=== PATIENT | female | born 1940 | race Caucasian/White ===

== ENCOUNTER 2021-10-27 00:08 | Inpatient (IN) | payer MEDICARE, OTHER ==
[~2021-10-27] VITALS: Ht 172.7 cm; Wt 82.1 kg
--- NOTE | 2021-10-27 00:20 | NUR ---
ELIZABETH Henriquez FROM [facility] C/O ABD PAIN +NAUSEA X1 DAY. PATIENT ALERT AND ORIENTED X2. BROUGHT IN BY STRETCHER WITH DYSPNEA. PATIENT PLACED ON NON REBREATHER MASK @8L SATTING AT 98%
--- NOTE | 2021-10-27 00:40 | NUR ---
LOCOMOTIVE ELECTRICIAN @ BEDSIDE
[2021-10-27] MEDS ORDERED: IV NS 0.9% 500 ML BAG IV ONE (01:00)
--- NOTE | 2021-10-27 01:24 | NUR ---
MRSA SWAB COLLECTED AND SENT TO LAB. PATIENT'S BELONGINGS LIST DONE.
[2021-10-27 01:26] LABS: BASOPHILS % (AUTO) 0.3 % (0.0-2.0); EOSINOPHILS % (AUTO) 0.2 % (0.0-6.0); HEMATOCRIT 32 % (33-45); HEMOGLOBIN 9.8 g/dL (11.5-14.8); LYMPHOCYTES # (AUTO) 1.1 K/uL (0.8-4.8); LYMPHOCYTES % (AUTO) 8.8 % (20.0-44.0); MEAN CORPUSCULAR HGB CONC 31 g/dl (31.0-36.0); MEAN CORPUSCULAR VOLUME 96 fL (82-100); MONOCYTES # (AUTO) 0.5 K/uL (0.1-1.30); MONOCYTES % (AUTO) 3.7 % (2.0-12.0); PLATELET COUNT (AUTO) 407 K/uL (150-450); WHITE BLOOD COUNT (AUTO) 12.6 K/uL (4.3-11.0)
--- NOTE | 2021-10-27 01:28 | NUR ---
PATIENT GOING TO CT.
[2021-10-27 01:39] LABS: CALCIUM, SERUM 8.2 mg/dL (8.5-10.1); CREATININE 0.7 mg/dL (0.6-1.3); POTASSIUM 3.5 mmol/L (3.5-5.1)
[2021-10-27] MEDS ORDERED: ONDANSETRON HCL/PF 4 MG/2 ML VIAL ONE (02:16)
[2021-10-27] MEDS ORDERED: LORAZEPAM 0.5 MG TABLET ONE (02:17)
[2021-10-27] MEDS ORDERED: ASPIRIN 325 MG TABLET ONE (02:17)
--- NOTE | 2021-10-27 02:17 | NUR ---
CHANGED PATIENTS BEDDINGS AND DIAPER PATIENT COMFORTABLE AND ON THE MONITOR
[2021-10-27] MEDS ORDERED: ONDANSETRON HCL/PF 4 MG/2 ML VIAL IV ONE (02:30)
[2021-10-27] MEDS ORDERED: ASPIRIN 325 MG TABLET PO ONE (02:30)
[2021-10-27] MEDS ORDERED: LORAZEPAM 0.5 MG TABLET PO ONE (02:30)
[2021-10-27 02:31] LABS: BILIRUBIN,URINE SMALL (NEGATIVE); COLOR,URINE YELLOW (YELLOW); LEUKOCYTE ESTERASE ,URINE TRACE (NEGATIVE); NITRITE, URINE POSITIVE (NEGATIVE); PROTEIN,URINE 30 mg/dl (NEGATIVE); UGLUCOSE NEGATIVE (NEGATIVE); UROBILINOGEN,URINE 0.2 EU/dL (0.2)
[2021-10-27 02:35] LABS: ALBUMIN 2.3 g/dL (3.4-5.0); BILIRUBIN,DIRECT 0.3 mg/dL (0.0-0.2); BILIRUBIN,TOTAL 0.4 mg/dL (0.2-1.0); TOTAL PROTEIN, SERUM 6.2 g/dL (6.4-8.2)
[2021-10-27 02:44] LABS: BACTERIA,URINE Moderate /HPF (None Seen); SQUAMOUS EPITHELIAL CELL,UR Few /HPF (None Seen)
[2021-10-27] MEDS ORDERED: LEVOFLOXACIN 750 MG /D5W 150ML PIGGYBACK IV ONE (03:00)
[2021-10-27] MEDS ORDERED: LEVOFLOXACIN 750 MG /D5W 150ML 150 ML IV ONE (03:08)
--- NOTE | 2021-10-27 03:30 | NUR ---
patient resting comfortably no complaints at this time.
[2021-10-27] MEDS ORDERED: ONDANSETRON HCL/PF 4 MG/2 ML VIAL IVP PRN (04:30)
[2021-10-27] MEDS ORDERED: Z GUARD REMEDY 2 OZ OINT TP PRN (04:30)
[2021-10-27] MEDS ORDERED: HYDROCODONE/APAP 5/325MG TABLET PO PRN (04:30)
[2021-10-27] MEDS ORDERED: MORPHINE SULFATE INJ 2 MG/ML DISP.SYRIN IV PRN (04:30)
[2021-10-27] MEDS ORDERED: NITROGLYCERIN 0.4 MG/TAB BOTTLE SL PRN (04:30)
[2021-10-27] MEDS ORDERED: MAGNESIUM HYDROXIDE 30 ML UDC PO PRN (04:30)
[2021-10-27] MEDS ORDERED: MAG HYDROX/AL HYDROX/SIMETH 30 ML UDC PO PRN (04:30)
[2021-10-27] MEDS ORDERED: FLAGYL/NS RTU 500 MG/100 ML PIGGYBACK IV ONE (04:30)
[2021-10-27] MEDS ORDERED: CIPROFLOXACIN IV RTU 400 MG in PREMIX 1 EA IV SCH (04:30)
[2021-10-27] MEDS ORDERED: ZOLPIDEM TARTRATE 5 MG TABLET PO PRN (04:30)
[2021-10-27] MEDS ORDERED: METRONIDAZOLE 500MG/ NS 100ML 100 ML IV ONE (04:40)
[2021-10-27] MEDS ORDERED: CIPROFLOXACIN IV RTU 200 ML IV ONE (04:40)
--- NOTE | 2021-10-27 07:20 | NUR ---
ASSESSED PT ON BED AWAKE, AAOX4, ON NON RB AT 15 LPM. V/S STABLE, KEPT RESTED AND COMFORTABLE. WILL CONTINUE TO MONITOR.
--- NOTE | 2021-10-27 07:30 | NUR ---
SWITCHED TO SIMPLE MASK ON 10LPM. SATS AT 100%
[2021-10-27] MEDS ORDERED: PANTOPRAZOLE 40 MG TABLET.DR PO ONE (07:46)
[2021-10-27] MEDS: PANTOPRAZOLE 40 MG TABLET.DR PO SCH (07:47)
[2021-10-27] MEDS ORDERED: BENA5TAB5 PO (08:11)
[2021-10-27] MEDS ORDERED: MELA3TAB41 PO (08:11)
[2021-10-27] MEDS ORDERED: MAGN400O6 PO (08:11)
[2021-10-27] MEDS ORDERED: INSU100V11 SQ (08:11)
[2021-10-27] MEDS ORDERED: ASCO-352 PO (08:11)
[2021-10-27] MEDS ORDERED: CARV3.122 PO (08:11)
[2021-10-27] MEDS ORDERED: OMEP20CA15 PO (08:11)
[2021-10-27] MEDS ORDERED: SIME80TA15 PO (08:11)
[2021-10-27] MEDS ORDERED: ACET-868 PO ×2 (08:11)
[2021-10-27] MEDS ORDERED: FURO-144 PO (08:11)
[2021-10-27] MEDS ORDERED: CHOL100062 PO (08:11)
[2021-10-27] MEDS ORDERED: BISA10SU11 RC (08:11)
[2021-10-27] MEDS ORDERED: ATOR40TA PO (08:11)
[2021-10-27] MEDS ORDERED: NA P133E RC (08:11)
[2021-10-27] MEDS ORDERED: ASPI-1169 PO (08:11)
[2021-10-27] MEDS ORDERED: POLY17PO4 PO (08:11)
[2021-10-27] MEDS ORDERED: MULT-447 PO (08:11)
[2021-10-27] MEDS ORDERED: ALBU8.5H8 IH (08:11)
[2021-10-27] MEDS ORDERED: ESCI5TAB PO (08:11)
[2021-10-27] MEDS ORDERED: FLUT16SP (08:11)
[2021-10-27] MEDS ORDERED: ONDA4TAB5 PO (08:11)
--- NOTE | 2021-10-27 08:49 | NUR ---
Lj moon in [facility] - 10/27/21 at 0850 by DOMINGO SPOKED TO TILA
--- NOTE | 2021-10-27 08:50 | NUR ---
SPOKE TO PT BROTHER RUTH ANN WHO IS THE POA.
[2021-10-27] MEDS ORDERED: ASPIRIN EC 81 MG TABLET.DR PO SCH (09:00)
[2021-10-27] MEDS ORDERED: FUROSEMIDE 40 MG/4 ML VIAL IV SCH (09:00)
[2021-10-27] MEDS ORDERED: ENOXAPARIN SODIUM 40 MG/0.4 ML DISP.SYRIN SQ ONE (09:03)
[2021-10-27] MEDS ORDERED: FUROSEMIDE 40 MG/4 ML VIAL ONE (09:04)
[2021-10-27] MEDS ORDERED: ASPIRIN 81 MG TAB.CHEW ONE (09:04)
[2021-10-27] MEDS: ENOXAPARIN SODIUM 40 MG/0.4 ML DISP.SYRIN SQ SCH (09:16)
--- NOTE | 2021-10-27 09:35 | NUR ---
BED 116-1
--- NOTE | 2021-10-27 09:44 | NUR ---
REPORT GIVEN TO ANITHA SHELTON FOR POWER.
[2021-10-27] MEDS ORDERED: OMEPRAZOLE 20 MG CAPSULE.DR PO SCH (10:30)
[2021-10-27] MEDS ORDERED: ALBUTEROL SULFATE INH 18 GM HFA.AER.AD IH PRN (10:30)
--- NOTE | 2021-10-27 10:53 | NUR ---
BREWING DIRECTOR NOTES RECEIVED PT AWAKE/ALERT X 4 ON 8L SIMPLE MASK WITH NO S/SX OF ACUTE RESPIRATORY DISTRESS. PT HAS A LEFT WRIST 22G SALINE LOCK, FLUSHED, PATENT AND IN TACT. PT SKIN IS IN TACT WITH SACRAL REDNESS, AND REDNESS UNDER BREAST TISSUE. PT VITAL SIGNS ARE STABLE: T-98.6, HR-76, RR-22, 02 SATURATION- 100%, BP-134/66, WITH NO COMPLAINTS OF PAIN AT THIS TIME. PT PLACED ON A TELE MONITOR, PT ORIENTED TO ROOM, SAFETY MEASURES IN PLACE WITH BED IN LOWEST LOCKED POSITION, SIDE RAILS UP X2, BED ALARM ON AND CALL LIGHT WITHIN REACH.
[2021-10-27 10:57] VITALS: BP 134/66
[2021-10-27] MEDS ORDERED: POTASSIUM CHLORIDE 20 MEQ TAB.PRT.SR PO SCH (11:00)
[2021-10-27] MEDS: ASPIRIN 81 MG TAB.CHEW PO SCH (11:22)
[2021-10-27] MEDS: BENAZEPRIL HCL 5 MG TABLET PO SCH (11:23)
[2021-10-27] MEDS: FUROSEMIDE 40 MG/4 ML VIAL IV SCH ×3 (11:23→18:17)
[2021-10-27] MEDS: ONDANSETRON 4 MG TAB.RAPDIS PO PRN ×2 (11:26→15:51)
[2021-10-27] MEDS: ACETAMINOPHEN 325 MG TABLET PO PRN ×2 (11:27→15:51)
[2021-10-27] MEDS: FLUTICASONE PROPIONATE 16 GM BOTTLE NS SCH (11:28)
[2021-10-27] MEDS: CEFEPIME 2 GM in IV D5W 100 ML IV SCH ×2 (11:43→20:41)
[2021-10-27 12:00] VITALS: BP 134/66
[2021-10-27] MEDS: POTASSIUM CHLORIDE 20 MEQ POWDER PACKET PO SCH ×2 (14:17→14:18)
--- NOTE | 2021-10-27 15:30 | NUR ---
LABORER HOISTING NOTES ECHO DONE. PT EF 20% AND PLEURAL EFFUSIONS EVIDENT. NIKO LA NOTIFIED.
[2021-10-27 16:00] VITALS: BP 119/59
--- NOTE | 2021-10-27 16:23 | NUR ---
RETAIL RESET MERCHANDISER NOTES 16 F MARTINS CATHETER INSERTED, DRAINING PALE YELLOW URINE.
--- NOTE | 2021-10-27 16:39 | NUR ---
PRELIMINARY ECHO SHOWED EF 20-25%~. ADVISED RN AND DR. BOOTH OF INITIAL RESULTS.
[2021-10-27] MEDS: LORAZEPAM INJ 2 MG/ML VIAL IV PRN (18:15)
--- NOTE | 2021-10-27 18:39 | NUR ---
LOAN WORKOUT OFFICER CLOSING NOTES PT RESTING WITH HOB ELEVATED ON SIMPLE FACE MASK @8LPM, WITH SOME SOB NOTED. PT HAS A L WRIST 20G SL. GAVE PRN ATIVAN @1815 FOR INCREASED ANXIETY. PT HAS A MARTINS WITH 1200ML OUTPUT ON SHIFT AND 1 BM. NO INSULIN COVERAGE GIVEN THROUGHOUT SHIFT. PT IS ABLE TO MAKE NEEDS KNOWN. PT KEPT CLEAN AND DRY THROUGHOUT SHIFT. SAFETY MEASURES IN PLACE WITH BED IN LOW LOCKED POSITION, SIDE RAILS UP X3, AND CALL LIGHT WITHIN REACH.
[2021-10-27 20:00] VITALS: BP 122/47
--- NOTE | 2021-10-27 20:07 | NUR ---
RN NOTE PATIENT ALERT AND ORIENTED X4. ON 8L SIMPLE MASK WITH NO SIGNS OF SOB. IV ACCESS ON LEFT WRIST 22G SALINE LOCK, FLUSHED, PATENT AND INTACT. DENIES ANY PAIN OR DISCOMFORT. SAFETY MEASURES IN PLACE WITH BED IN LOWEST LOCKED POSITION, SIDE RAILS UP X2, BED ALARM ON AND CALL LIGHT WITHIN REACH. ALL NEEDS ANTICIPATED.
[2021-10-28] VITALS: BP 119/58
[2021-10-28] MEDS: ACETAMINOPHEN 325 MG TABLET PO PRN ×4 (00:29→23:33)
[2021-10-28] MEDS: ONDANSETRON 4 MG TAB.RAPDIS PO PRN ×4 (00:29→23:33)
[2021-10-28] MEDS: LORAZEPAM INJ 2 MG/ML VIAL IV PRN ×2 (03:55→16:10)
[2021-10-28 04:00] VITALS: BP 138/63
--- NOTE | 2021-10-28 07:28 | NUR ---
RN NOTE PATIENT ALERT AND ORIENTED X4. ON 8L SIMPLE MASK, NO RESPIRATORY DISTRESS NOTED. IV ACCESS ON LEFT WRIST 22G SALINE LOCK, FLUSHED, PATENT AND INTACT. DENIES ANY PAIN OR DISCOMFORT. KEPT CLEAN AND DRY. SAFETY MEASURES IN PLACE WITH BED IN LOWEST LOCKED POSITION, SIDE RAILS UP X2, BED ALARM ON AND CALL LIGHT WITHIN REACH. ENDORSED TO AM SHIFT.
--- NOTE | 2021-10-28 07:38 | NUR ---
RN OPENING NOTES; PT IN BED IN SUPINE POS. PT A/OX4, PT HAS NO C/O PAIN AT THIS TIME. NO SOB AND DISTRESS NOTED. ALL SAFETY MEASURES RENDERED, BED LOCKED, IN LOWEST POS. SIDE RAILS UP X3, WITH CALL LIGHT WITHIN REACH. WILL CONTINUE TO MONITOR.
[2021-10-28 08:00] VITALS: BP 114/61
[2021-10-28] MEDS: CEFEPIME 2 GM in IV D5W 100 ML IV SCH ×2 (08:35→20:18)
[2021-10-28] MEDS: ASPIRIN 81 MG TAB.CHEW PO SCH (08:40)
[2021-10-28] MEDS: ESCITALOPRAM OXALATE (10 MG) 10 MG TABLET PO SCH (08:41)
[2021-10-28] MEDS: PANTOPRAZOLE 40 MG TABLET.DR PO SCH (08:41)
[2021-10-28] MEDS: CARVEDILOL 3.125 MG TABLET PO SCH ×2 (08:41→16:09)
[2021-10-28] MEDS: BENAZEPRIL HCL 5 MG TABLET PO SCH (08:41)
[2021-10-28] MEDS: ENOXAPARIN SODIUM 40 MG/0.4 ML DISP.SYRIN SQ SCH (08:42)
[2021-10-28] MEDS: FLUTICASONE PROPIONATE 16 GM BOTTLE NS SCH (08:45)
[2021-10-28 09:08] LABS: BASOPHILS % (AUTO) 0.6 % (0.0-2.0); EOSINOPHILS % (AUTO) 0.9 % (0.0-6.0); HEMATOCRIT 29 % (33-45); HEMOGLOBIN 9.3 g/dL (11.5-14.8); LYMPHOCYTES # (AUTO) 1.5 K/uL (0.8-4.8); LYMPHOCYTES % (AUTO) 21.7 % (20.0-44.0); MEAN CORPUSCULAR HGB CONC 32 g/dl (31.0-36.0); MEAN CORPUSCULAR VOLUME 94 fL (82-100); MONOCYTES # (AUTO) 0.5 K/uL (0.1-1.30); MONOCYTES % (AUTO) 7.1 % (2.0-12.0); NEUTROPHILS # (AUTO) 4.9 K/uL (1.8-8.9); NEUTROPHILS % (AUTO) 69.7 % (43.0-81.0); PLATELET COUNT (AUTO) 304 K/uL (150-450); RED BLOOD CELL COUNT(AUTO) 3.12 MIL/uL (4.0-5.2)
[2021-10-28 09:35] LABS: ALBUMIN 2.4 g/dL (3.4-5.0); BILIRUBIN,TOTAL 0.4 mg/dL (0.2-1.0); CALCIUM, SERUM 8.4 mg/dL (8.5-10.1); CREATININE 0.8 mg/dL (0.6-1.3); MAGNESIUM 1.4 mg/dL (1.8-2.4); PHOSPHORUS 3.5 mg/dL (2.5-4.9); POTASSIUM 3.8 mmol/L (3.5-5.1); TOTAL PROTEIN, SERUM 6.2 g/dL (6.4-8.2)
[2021-10-28 10:04] LABS: ABG BASE EXCESS 7.9 mmol/L; ABG OXYGEN SATURATION 99.1 % (92.0-98.5); ABG PCO2 41.5 mmHg (35.0-45.0); ABG PH 7.502 (7.350-7.450); ABG PO2 159.1 mmHg (75.0-100.0); AaDO2 49.4 mmHg; O2Hb 99.1 % (94.0-97.0); SITE, ABG Right Radial; VENT MODE, BG NASAL CANNULA
[2021-10-28 11:18] LABS: THYROID STIMULATING HORMONE 1.535 uIU/mL (0.358-3.74)
[2021-10-28 12:00] VITALS: BP 105/66
[2021-10-28] MEDS: SOD FERRIC GLUC 125 MG in IV NS 0.9% 100 ML IV SCH (14:25)
[2021-10-28 16:00] VITALS: BP 122/79
--- NOTE | 2021-10-28 18:29 | NUR ---
RN CLOSING NOTES; PT A/OX3, NO SOB NOTED, TITRATING 02, PT CAN TOLERATE 2LPM VIA NC. NO C/O PAIN AT THIS TIME. NO DISTRESS NOTED. ALL MEDICATION GIVEN AND TOLERATED WELL. PT KEPT CLEAN, DRY, AND COMFORTABLE. ALL SAFETY MEASURES RENDERED, BED IN LOWEST POS. LOCKED WITH CALL LIGHT WITHIN REACH. NO SIGNIFICANT CHANGES IN PT HEALTH STATUS DURING SHIFT. WILL ENDORSE TO DIRECTOR SOFTWARE DEVELOPMENT. PT IN STABLE CONDITION.
--- NOTE | 2021-10-28 19:44 | NUR ---
RN NOTE PATIENT ALERT AND ORIENTED X4. ON O2 2L VIA NASAL CANNULA WITH NO SIGNS OF SOB. IV ACCESS ON CL MIDLINE #18, FLUSHED, PATENT AND INTACT. DENIES ANY PAIN OR DISCOMFORT. MARTINS CATH NOTED, DRAINING URINE VIA GRAVITY. SAFETY MEASURES IN PLACE WITH BED IN LOWEST LOCKED POSITION, SIDE RAILS UP X2, BED ALARM ON AND CALL LIGHT WITHIN REACH. ALL NEEDS ANTICIPATED.
[2021-10-28 20:00] VITALS: BP 115/64
[2021-10-29] VITALS: BP 121/73
[2021-10-29] MEDS: LORAZEPAM INJ 2 MG/ML VIAL IV PRN ×2 (00:39→16:16)
[2021-10-29 04:00] VITALS: BP 108/69
[2021-10-29] MEDS: ONDANSETRON 4 MG TAB.RAPDIS PO PRN ×3 (06:14→19:54)
[2021-10-29] MEDS: ACETAMINOPHEN 325 MG TABLET PO PRN ×3 (06:15→19:54)
--- NOTE | 2021-10-29 07:10 | NUR ---
RN NOTE PATIENT ALERT AND ORIENTED X4. ON O2 2L VIA NASAL CANNULA WITH NO SIGNS OF SOB. IV ACCESS ON CL MIDLINE #18, FLUSHED, PATENT AND INTACT. DENIES ANY PAIN OR DISCOMFORT. MARTINS CATH OUTPUT 300CC JUAN RAMON URINE. KEPT CLEAN, DRY, AND COMFORTABLE. WITHIN REACH. WILL ENDORSE TO AM SHIFT.
[2021-10-29] MEDS: PANTOPRAZOLE 40 MG TABLET.DR PO SCH (07:30)
[2021-10-29 08:00] VITALS: BP 116/65
[2021-10-29 08:02] LABS: BASOPHILS % (AUTO) 0.5 % (0.0-2.0); EOSINOPHILS % (AUTO) 1.5 % (0.0-6.0); HEMATOCRIT 28 % (33-45); HEMOGLOBIN 8.9 g/dL (11.5-14.8); LYMPHOCYTES # (AUTO) 1.4 K/uL (0.8-4.8); LYMPHOCYTES % (AUTO) 22.5 % (20.0-44.0); MEAN CORPUSCULAR HGB CONC 32 g/dl (31.0-36.0); MEAN CORPUSCULAR VOLUME 95 fL (82-100); MONOCYTES # (AUTO) 0.6 K/uL (0.1-1.30); NEUTROPHILS % (AUTO) 65.5 % (43.0-81.0); PLATELET COUNT (AUTO) 255 K/uL (150-450); RED BLOOD CELL COUNT(AUTO) 2.94 MIL/uL (4.0-5.2); WHITE BLOOD COUNT (AUTO) 6.1 K/uL (4.3-11.0)
[2021-10-29] MEDS: ASPIRIN 81 MG TAB.CHEW PO SCH (08:40)
[2021-10-29] MEDS: BENAZEPRIL HCL 5 MG TABLET PO SCH (08:40)
[2021-10-29] MEDS: CARVEDILOL 3.125 MG TABLET PO SCH ×2 (08:40→16:34)
[2021-10-29] MEDS: ESCITALOPRAM OXALATE (10 MG) 10 MG TABLET PO SCH (08:40)
[2021-10-29] MEDS: CEFEPIME 2 GM in IV D5W 100 ML IV SCH ×2 (08:42→21:00)
[2021-10-29] MEDS: ENOXAPARIN SODIUM 40 MG/0.4 ML DISP.SYRIN SQ SCH (08:44)
[2021-10-29 08:54] LABS: ALBUMIN 2.1 g/dL (3.4-5.0); BILIRUBIN,TOTAL 0.3 mg/dL (0.2-1.0); CALCIUM, SERUM 8.1 mg/dL (8.5-10.1); CREATININE 0.7 mg/dL (0.6-1.3); MAGNESIUM 1.7 mg/dL (1.8-2.4); PHOSPHORUS 3.5 mg/dL (2.5-4.9); POTASSIUM 4.3 mmol/L (3.5-5.1); TOTAL PROTEIN, SERUM 5.9 g/dL (6.4-8.2)
[2021-10-29] MEDS: FLUTICASONE PROPIONATE 16 GM BOTTLE NS SCH (09:02)
[2021-10-29] MEDS: FUROSEMIDE 40 MG/4 ML VIAL IV SCH ×3 (10:25→17:20)
[2021-10-29] MEDS ORDERED: SENNOSIDES 8.6 MG TABLET PO PRN (11:00)
[2021-10-29] MEDS ORDERED: DEXTROSE 50%-WATER 50 ML DISP.SYRIN IV PRN (11:00)
[2021-10-29 11:07] LABS: *SPE A/G RATIO 0.7 (0.7-1.7); *SPE ALPHA-1-GLOBULIN 0.3 g/dL (0.0-0.4); *SPE ALPHA-2-GLOBULIN 0.7 g/dL (0.4-1.0); *SPE M-SPIKE Not Observed g/dL (Not Observed)
[2021-10-29] MEDS: BLOOD SUGAR DIAGNOSTIC 1 EACH STRIP IN SCH ×3 (11:49→22:41)
[2021-10-29] MEDS: INSULIN REGULAR, HUMAN 100 UNIT/ML 3 ML VIAL SQ PRN ×2 (12:08→22:43)
--- NOTE | 2021-10-29 13:14 | NUR ---
[facility] covid negative pcr.
[2021-10-29] MEDS: SOD FERRIC GLUC 125 MG in IV NS 0.9% 100 ML IV SCH (15:13)
[2021-10-29 16:00] VITALS: BP 115/52
--- NOTE | 2021-10-29 19:30 | NUR ---
RN OPENING NOTE PATIENT ALERT AND ORIENTED X4. ON O2 2L VIA NASAL CANNULA WITH NO SIGNS OF SOB OR DISTRESS. CL MIDLINE 18 GAUGE, PATENT AND FLUSHED. MARTINS CATH NOTED, DRAINING URINE VIA GRAVITY. SAFETY MEASURES IN PLACE WITH BED IN LOWEST LOCKED POSITION, SIDE RAILS UP X3, BED ALARM ON AND CALL LIGHT WITHIN REACH.
[2021-10-29 20:00] VITALS: BP 108/40
[2021-10-29 23:15] VITALS: BP 108/40
[2021-10-30] MEDS: ONDANSETRON 4 MG TAB.RAPDIS PO PRN ×3 (02:08→14:19)
[2021-10-30] MEDS: ACETAMINOPHEN 325 MG TABLET PO PRN ×3 (02:08→14:19)
[2021-10-30 02:31] VITALS: BP 101/54
--- NOTE | 2021-10-30 03:08 | NUR ---
RN NOTE REASSESSMENT OF PAIN AND NAUSEA AFTER ADMINISTERING TYLENOL AND ZOFRAN - PATIENT NO LONGER COMPLAINED OF NAUSEA AND PAIN AFTER TAKING THE MEDICATION. PATIENT WAS RESTING COMFORTABLY IN BED.
[2021-10-30 04:00] VITALS: BP 120/59
--- NOTE | 2021-10-30 06:00 | NUR ---
RN CLOSING NOTES PATIENT ALERT AND ORIENTED X4. ON O2 2L VIA NASAL CANNULA WITH NO SIGNS OF SOB. IV ACCESS ON CL MIDLINE #18, FLUSHED, PATENT AND INTACT. DENIES ANY PAIN OR DISCOMFORT. COMPLETE BED BATH GIVEN, LINENS CHANGED, AND ALL MEDICATIONS GIVEN. AFTER ADMINISTERING ZOFRAN AND TYLENOL, PATIENT DID NOT COMPLAIN OF ANY PAIN OR NAUSEA.MARTINS CATH OUTPUT TOTAL 2750 ML, LIGHT YELLOW, CLEAR. PATIENT DOES NOT HAVE SOB, DISTRESS, OR DISCOMFORT.BED IN LOW POSITION, CALL LIGHT IN REACH, HAND RAILS UP X3 , WILL ENDORSE PATIENT CARE TO ONCOMING NURSE.
[2021-10-30] MEDS: LORAZEPAM INJ 2 MG/ML VIAL IV PRN ×2 (06:25→14:19)
--- NOTE | 2021-10-30 07:45 | NUR ---
INSURANCE CLAIMS PROCESSOR OPENING NOTES RECEIVED PT AWAKE/ALERT IN BED WITH NO S/SX OF RESPIRATORY DISTRESS NOTED. PT REQUESTING PRN MEDICATIONS ANTONINAFRAN, KRIS TYLENOL @0800. PT HAS A CL ML 18G AND BRENDAN PICC LINE SL, BOTH FLUSHED, PATENT AND INTACT. PT HAS A MARTINS CATHETER DRAINING CLEAR YELLOW URINE. SAFETY MEASURES IN PLACE WITH BED IN LOWEST LOCKED POSITION, CALL LIGHT WITHIN REACH AND BED ALARM ON.
[2021-10-30 08:00] VITALS: BP 124/64
[2021-10-30] MEDS: PANTOPRAZOLE 40 MG TABLET.DR PO SCH (08:03)
[2021-10-30] MEDS: BLOOD SUGAR DIAGNOSTIC 1 EACH STRIP IN SCH ×2 (08:03→12:16)
[2021-10-30] MEDS: FLUTICASONE PROPIONATE 16 GM BOTTLE NS SCH (08:10)
[2021-10-30] MEDS: CEFEPIME 2 GM in IV D5W 100 ML IV SCH (08:12)
[2021-10-30 08:16] LABS: BASOPHILS % (AUTO) 0.6 % (0.0-2.0); EOSINOPHILS % (AUTO) 2.3 % (0.0-6.0); HEMATOCRIT 29 % (33-45); HEMOGLOBIN 9.3 g/dL (11.5-14.8); LYMPHOCYTES # (AUTO) 1.2 K/uL (0.8-4.8); MEAN CORPUSCULAR HGB CONC 33 g/dl (31.0-36.0); MEAN CORPUSCULAR VOLUME 92 fL (82-100); MONOCYTES # (AUTO) 0.5 K/uL (0.1-1.30); MONOCYTES % (AUTO) 9.8 % (2.0-12.0); NEUTROPHILS # (AUTO) 3.3 K/uL (1.8-8.9); NEUTROPHILS % (AUTO) 63.3 % (43.0-81.0); PLATELET COUNT (AUTO) 272 K/uL (150-450); RED BLOOD CELL COUNT(AUTO) 3.09 MIL/uL (4.0-5.2); WHITE BLOOD COUNT (AUTO) 5.1 K/uL (4.3-11.0)
[2021-10-30 08:35] LABS: ALBUMIN 2.2 g/dL (3.4-5.0); BILIRUBIN,TOTAL 0.3 mg/dL (0.2-1.0); CALCIUM, SERUM 8.2 mg/dL (8.5-10.1); CREATININE 0.7 mg/dL (0.6-1.3); MAGNESIUM 1.7 mg/dL (1.8-2.4); PHOSPHORUS 3.7 mg/dL (2.5-4.9); POTASSIUM 3.1 mmol/L (3.5-5.1)
[2021-10-30] MEDS: BENAZEPRIL HCL 5 MG TABLET PO SCH (09:24)
[2021-10-30] MEDS: ASPIRIN 81 MG TAB.CHEW PO SCH (09:24)
[2021-10-30] MEDS: ESCITALOPRAM OXALATE (10 MG) 10 MG TABLET PO SCH (09:25)
[2021-10-30] MEDS: CARVEDILOL 3.125 MG TABLET PO SCH (09:25)
[2021-10-30] MEDS: ENOXAPARIN SODIUM 40 MG/0.4 ML DISP.SYRIN SQ SCH (09:29)
[2021-10-30] MEDS ORDERED: CEFE2PIG2 IV (10:19)
[2021-10-30] MEDS ORDERED: VANC1PLA9 IV (10:19)
[2021-10-30] MEDS ORDERED: MAGNESIUM OXIDE 400 MG TABLET PO ONE (10:30)
[2021-10-30 10:59] LABS: ABG BASE EXCESS 12.6 mmol/L; ABG PH 7.491 (7.350-7.450); ABG PO2 119.9 mmHg (75.0-100.0); COHb 0.3 % (0.5-1.5); MetHb 0.5 % (0.0-1.5); O2Hb 97.5 % (94.0-97.0); SITE, ABG Left Brachial; VENT MODE, BG NASAL CANNULA
[2021-10-30] MEDS ORDERED: POTASSIUM CHLORIDE 20 MEQ TAB.PRT.SR PO ONE (11:00)
[2021-10-30 12:00] VITALS: BP 125/64
[2021-10-30] MEDS: INSULIN REGULAR, HUMAN 100 UNIT/ML 3 ML VIAL SQ PRN (12:18)
--- NOTE | 2021-10-30 14:00 | NUR ---
MARKETING EXECUTIVE NOTES REPORT GIVEN TO YANY AT [facility]. PT IS IN STABLE CONDITION, TO BE DISCHARGED WITH IV ABX. BRENDAN MIDLINE IN PLACE. PT DISCHARGED WITH MARTINS CATHETER. REPORT GIVEN TO AMBULANCE FOR CONTINUITY OF CARE. SEAT COVERER REMOVED, BELONGINGS DOCUMENTED AND DISCHARGE INSTRUCTIONS GIVEN.
== END 2021-10-30 15:37 | DRG 280 ==
LOC: ER 00:10 → TRANSITION 04:59 → TELE1 09:43
PROVIDERS: ADMIT Nurse Practitioner Acute Care; ATTEND Family Medicine
PROC: 05H633Z Insertion of Infusion Device into Left Subclavian Vein, Percutaneous Approach (ICD-10-PCS; principal; 2021-10-28)
PROC: B547ZZA Ultrasonography of Left Subclavian Vein, Guidance (ICD-10-PCS; 2021-10-28)
DX: I50.43 Acute on chronic combined systolic (congestive) and diastolic (congestive) heart failure (principal); J96.01 Acute respiratory failure with hypoxia; I21.A1 Myocardial infarction type 2; N39.0 Urinary tract infection, site not specified; I42.9 Cardiomyopathy, unspecified; J90 Pleural effusion, not elsewhere classified; E11.65 Type 2 diabetes mellitus with hyperglycemia; D63.8 Anemia in other chronic diseases classified elsewhere; E04.1 Nontoxic single thyroid nodule; E78.5 Hyperlipidemia, unspecified; J45.909 Unspecified asthma, uncomplicated; Z86.74 Personal history of sudden cardiac arrest; Z66 Do not resuscitate; N31.9 Neuromuscular dysfunction of bladder, unspecified; M79.7 Fibromyalgia; K52.9 Noninfective gastroenteritis and colitis, unspecified; F32.A Depression, unspecified; F25.9 Schizoaffective disorder, unspecified; I25.10 Atherosclerotic heart disease of native coronary artery without angina pectoris; Z87.01 Personal history of pneumonia (recurrent); Z87.440 Personal history of urinary (tract) infections; R74.01 Elevation of levels of liver transaminase levels; Z20.822 Contact with and (suspected) exposure to COVID-19; Z88.0 Allergy status to penicillin; Z88.2 Allergy status to sulfonamides; K29.70 Gastritis, unspecified, without bleeding; B95.7 Other staphylococcus as the cause of diseases classified elsewhere
CPT/HCPCS: 36410; 36415; 36600; 71045-TC; 76536-TC; 80048-TC; 80053-TC; 80061-TC; 80076-TC; 81001; 82728-TC; 82803-TC; 82962-TC; 83540-TC; 83690-TC; 83735-TC; 83880; 84100-TC; 84155; 84165; 84439-TC; 84443-TC; 84484-TC; 85025-TC; 85652-TC; 85730-TC; 87081-TC; 87086-TC; 93307-TC; 97112-TC; 97116-TC; 97530-TC; A4216; C9803; G0378; J0692; J0744; J1650; J1815; J1940; J1956; J2060; J2405; J2916; J7030; J7050; J7060; Q0162; U0003